=== PATIENT | female | born 2005 | race Hispanic/Latino ===

== ENCOUNTER 2023-07-10 19:05 | Emergency (ER) | payer OTHER ==
[~2023-07-10] VITALS: Ht 160 cm; Wt 63.5 kg
[2023-07-11] MEDS ORDERED: DICL2.5D7 OP (00:36)
[2023-07-11] MEDS ORDERED: POLYOS OS (00:36)
[2023-07-11 01:01] VITALS: BP 132/66; PULSE 81; RESP 16; O2SAT 100
== END 2023-07-11 01:01 | disposition home or self-care (01) ==
LOC: EDH 19:05 → EEVIPCON 19:05 → EDH 07-11 01:01
DX: H16.002 Unspecified corneal ulcer, left eye (principal); F41.9 Anxiety disorder, unspecified; F32.A Depression, unspecified; Z90.89 Acquired absence of other organs; Z98.890 Other specified postprocedural states